=== PATIENT | female | born 1955 | race Hispanic/Latino ===

== ENCOUNTER 2021-08-17 13:19 | Inpatient (IN) | payer OTHER ==
[~2021-08-17] VITALS: Ht 157.5 cm; Wt 72.6 kg
[2021-08-17 14:01] LABS: INR 0.93; PROTHROMBIN TIME 13.3 seconds (11.9-14.5)
[2021-08-17 14:02] LABS: PARTIAL THROMBOPLASTIN TIME 33.1 seconds (23.8-35.5)
[2021-08-17 14:11] LABS: ALANINE AMINOTRANSFERASE 17 IU/L (0-55); ALBUMIN 3.3 g/dL (3.5-5.0); ALBUMIN/GLOBULIN RATIO 0.7 (0.8-2.0); ALKALINE PHOSPHATASE 100 IU/L (40-150); ANION GAP 14.5 mmol/L (8-16); BLOOD UREA NITROGEN 5 mg/dL (7-26); BUN/CREATININE RATIO 7 (6-25); CALCIUM 9.3 mg/dL (8.4-10.2); CARBON DIOXIDE 25 mmol/L (22-29); CHLORIDE 101 mmol/L (98-107); CREATINE KINASE 29 IU/L (29-168); CREATININE, SERUM 0.76 mg/dL (0.57-1.11); EST GLOMERULAR FILTRATION RATE 77 ML/MIN (60-); GLUCOSE 278 mg/dL (74-118); POTASSIUM 3.5 mmol/L (3.5-5.1); SODIUM 137 mmol/L (136-145)
[2021-08-17 14:16] LABS: BASOPHILS % 0.6 % (0.0-1.0); EOSINOPHILS # (AUTO) 0.1 (0.0-0.4); EOSINOPHILS % 0.8 % (0.0-6.0); HEMATOCRIT 40.1 % (34.2-44.1); HEMOGLOBIN 13.6 g/dL (12.0-16.0); LYMPHOCYTES # (AUTO) 1.5 (1.0-3.2); LYMPHOCYTES % 20.7 % (18.0-39.1); MEAN CORPUSCULAR HEMOGLOBIN 29.2 pg (28-32); MEAN CORPUSCULAR HGB CONC 33.9 g/dL (31-35); MEAN CORPUSCULAR VOLUME 86.2 fL (81-99); MONOCYTES # (AUTO) 0.3 (0.2-0.8); MONOCYTES % 4.5 % (4.4-11.3); NEUTROPHILS # (AUTO) 5.3 (2.1-6.9); PLATELET COUNT 333 x10e3/uL (140-360); RED BLOOD COUNT 4.65 x10e6/uL (3.6-5.1); RED CELL DISTRIBUTION WIDTH 12.3 % (11.7-14.4)
[2021-08-17 14:21] LABS: AMPHETAMINES SCREEN,URINE NEGATIVE (NEGATIVE); CLARITY,URINE HAZY (CLEAR); COLOR,URINE YELLOW (YELLOW); KETONES,URINE NEGATIVE (NEGATIVE); LEUKOCYTE ESTERASE ,URINE NEGATIVE (NEGATIVE); NITRITE,URINE NEGATIVE (NEGATIVE); PHENCYCLIDINE SCREEN,URINE NEGATIVE (NEGATIVE); PROTEIN,URINE DIPSTICK 2+ (NEGATIVE)
[2021-08-17 14:22] LABS: BENZODIAZEPINES SCREEN,URINE NEGATIVE (NEGATIVE); URINE UROBILINOGEN 0.2 mg/dL (0.2 - 1)
[2021-08-17] MEDS ORDERED: ACETAMINOPHEN 325 MG TAB ONE (14:25)
[2021-08-17] MEDS ORDERED: ACETAMINOPHEN 325 MG TAB PO ONE (14:30)
[2021-08-17] MEDS ORDERED: SODIUM CHLORIDE 0.9% 1000ML 1,000 ML IV SCH (14:30)
[2021-08-17 14:31] LABS: BACTERIA,URINE MANY /HPF
[2021-08-17] MEDS ORDERED: Vancomycin IV 1 GM in SODIUM CHLORIDE 0.9% 250ML 250 ML IV STA (14:55)
[2021-08-17] MEDS ORDERED: DEXAMETHASONE SOD PHOS 10 MG/1 ML VIAL IV ONE (15:00)
[2021-08-17] MEDS ORDERED: CEFTRIAXONE 1 GM in SODIUM CHLORIDE 0.9% 50ML 50 ML IV SCH (15:00)
[2021-08-17] MEDS: CEFTRIAXONE 1 GM in SODIUM CHLORIDE 0.9% 50ML 50 ML IV STA ×2 (15:06→16:26)
[2021-08-17 16:06] LABS: APPEARANCE,CSF CLEAR (CLEAR); COLOR,CSF COLORLESS (COLORLESS); TUBE NUMBER 3
[2021-08-17 16:07] LABS: WHITE BLOOD CELL,CSF 4 cells/uL (0-5)
[2021-08-17] MEDS ORDERED: ONDANSETRON HCL INJ 2MG/ML 2ML 2 MG/ML VIAL IV PRN (16:15)
[2021-08-17] MEDS ORDERED: ACETAMINOPHEN 325 MG TAB PO PRN (16:15)
[2021-08-17] MEDS ORDERED: Ampicillin INJ 2 GM in SODIUM CHLORIDE 0.9% 100 ML IV ONE ×2 (16:30→20:00)
[2021-08-17] MEDS: SODIUM CHLORIDE 0.9% 1000ML 1,000 ML IV SCH (16:43)
[2021-08-17] MEDS ORDERED: DEXTROSE 50% SYRINGE 50 ML IV PRN (16:45)
[2021-08-17] MEDS ORDERED: ACYCLOVIR SODIUM 800 MG in SODIUM CHLORIDE 0.9% 250ML 250 ML IV SCH (17:00)
[2021-08-17] MEDS: INSULIN REGULAR, HUMAN 100 UNIT/1 ML SQ SCH ×2 (17:00→21:00)
[2021-08-17 18:30] VITALS: BP 156/84
[2021-08-17] MEDS ORDERED: CLONIDINE HCL 0.1 MG TAB PO PRN (19:30)
[2021-08-17] MEDS ORDERED: SODIUM CHLORIDE 0.9% 50ML 50 ML ONE (19:56)
[2021-08-17] MEDS ORDERED: IOPAMIDOL 370 MG/ML 200 ML INFUS..BTL INJ ONE (19:56)
[2021-08-17 20:00] VITALS: BP 149/89
[2021-08-18] VITALS (8 sets, daily range): BP systolic 121–138; BP diastolic 62–83
[2021-08-18 05:43] LABS: BASOPHILS % 0.1 % (0.0-1.0); HEMATOCRIT 36.2 % (34.2-44.1); HEMOGLOBIN 12.4 g/dL (12.0-16.0); LYMPHOCYTES # (AUTO) 1.2 (1.0-3.2); LYMPHOCYTES % 15.9 % (18.0-39.1); MEAN CORPUSCULAR HEMOGLOBIN 29.3 pg (28-32); MEAN CORPUSCULAR HGB CONC 34.3 g/dL (31-35); MEAN CORPUSCULAR VOLUME 85.6 fL (81-99); MONOCYTES # (AUTO) 0.2 (0.2-0.8); MONOCYTES % 2.2 % (4.4-11.3); NEUTROPHILS # (AUTO) 6.2 (2.1-6.9); NEUTROPHILS % 81.4 % (38.7-80.0); PLATELET COUNT 327 x10e3/uL (140-360); RED BLOOD COUNT 4.23 x10e6/uL (3.6-5.1)
[2021-08-18] MEDS: PIPERACILLIN/TAZOBACTAM 3.375 GM in SODIUM CHLORIDE 0.9% 50ML 50 ML IV SCH ×6 (05:45→23:19)
[2021-08-18] MEDS: SODIUM CHLORIDE 0.9% 1000ML 1,000 ML IV SCH ×4 (05:49→23:08)
[2021-08-18 06:05] LABS: ALBUMIN 2.7 g/dL (3.5-5.0); ALBUMIN/GLOBULIN RATIO 0.7 (0.8-2.0); ANION GAP 12.4 mmol/L (8-16); CALCIUM 8.3 mg/dL (8.4-10.2); CREATININE, SERUM 0.65 mg/dL (0.57-1.11); POTASSIUM 3.4 mmol/L (3.5-5.1)
[2021-08-18] MEDS ORDERED: ATORVASTATIN CA10 MG PO (06:35)
[2021-08-18] MEDS: INSULIN REGULAR, HUMAN 100 UNIT/1 ML SQ SCH ×4 (07:30→21:15)
[2021-08-18] MEDS ORDERED: POTASSIUM CHLORIDE 10MEQ EA PO ONE ×2 (14:00→14:45)
[2021-08-18] MEDS ORDERED: POTASSIUM CHLORIDE 20 MEQ TAB CR PO ONE (14:35)
[2021-08-18] MEDS: ENOXAPARIN SOD INJ 40 MG/0.4 ML SYR SC SCH (17:00)
[2021-08-18] MEDS: ATORVASTATIN 10 MG TAB PO SCH ×3 (21:00→21:09)
[2021-08-18] MEDS: INSULIN GLARGINE 100 UNITS/ML VIAL SQ SCH (21:15)
[2021-08-19] VITALS (7 sets, daily range): BP systolic 129–159; BP diastolic 64–77
[2021-08-19] MEDS: PIPERACILLIN/TAZOBACTAM 3.375 GM in SODIUM CHLORIDE 0.9% 50ML 50 ML IV SCH ×4 (05:24→23:54)
[2021-08-19] MEDS: INSULIN REGULAR, HUMAN 100 UNIT/1 ML SQ SCH ×4 (07:30→21:00)
[2021-08-19] MEDS: SODIUM CHLORIDE 0.9% 1000ML 1,000 ML IV SCH ×3 (08:15→16:15)
[2021-08-19] MEDS ORDERED: LEVOFLOXACIN250 MG PO (13:16)
[2021-08-19] MEDS: ENOXAPARIN SOD INJ 40 MG/0.4 ML SYR SC SCH (17:00)
[2021-08-19] MEDS: ATORVASTATIN 10 MG TAB PO SCH (21:00)
[2021-08-19] MEDS: INSULIN GLARGINE 100 UNITS/ML VIAL SQ SCH (21:08)
[2021-08-20] VITALS: BP 139/76
[2021-08-20 04:00] VITALS: BP 147/80
[2021-08-20] MEDS: PIPERACILLIN/TAZOBACTAM 3.375 GM in SODIUM CHLORIDE 0.9% 50ML 50 ML IV SCH (05:06)
[2021-08-20] MEDS: INSULIN REGULAR, HUMAN 100 UNIT/1 ML SQ SCH ×2 (07:29→11:21)
[2021-08-20 08:14] VITALS: BP 147/80
[2021-08-20 08:21] VITALS: BP 150/70
[2021-08-20 11:33] VITALS: BP 152/75
== END 2021-08-20 12:24 | disposition home or self-care (01) | DRG 689 ==
LOC: ER 13:51 → ERHOLD 16:15 → MED/SURG 17:18
PROVIDERS: ADMIT Internal Medicine; ATTEND Internal Medicine
PROC: 009U3ZX Drainage of Spinal Canal, Percutaneous Approach, Diagnostic (ICD-10-PCS; principal; 2021-08-17)
DX: N39.0 Urinary tract infection, site not specified (principal); G93.41 Metabolic encephalopathy; B96.1 Klebsiella pneumoniae [K. pneumoniae] as the cause of diseases classified elsewhere; E11.9 Type 2 diabetes mellitus without complications; I10 Essential (primary) hypertension; G97.1 Other reaction to spinal and lumbar puncture; G44.89 Other headache syndrome; R33.8 Other retention of urine; Z20.822 Contact with and (suspected) exposure to COVID-19
CPT/HCPCS: 36415; 62270; 70450; 70544; 70547; 70551; 71045; 74177; 80053; 80307; 81001; 82550; 82553; 82945; 82948; 83605; 83735; 84157; 84484; 85025; 85610; 85730; 87040; 87070; 87086; 87186; 87205; 87529; 89051; 93005; 93880; 94799; 99285; J0696; J1100; J1650; J1815; J1817; J2543; J3370; J7030; J7050; Q9967; U0002

== ENCOUNTER 2024-08-26 23:17 | Emergency (ER) | payer MEDICARE, OTHER ==
[~2024-08-26] VITALS: Ht 160 cm; Wt 65.8 kg
[~2024-08-26 23:17] MED LIST: ATORVASTATIN CA10 MG PO; LEVOFLOXACIN250 MG PO
[2024-08-26 23:44] VITALS: TEMP 98.8
[2024-08-27 00:58] LABS: BASOPHILS # (AUTO) 0.1 (0.0-0.1); BASOPHILS % 0.6 % (0.0-1.0); EOSINOPHILS # (AUTO) 0.1 (0.0-0.4); EOSINOPHILS % 1.5 % (0.0-6.0); HEMATOCRIT 41.7 % (34.2-44.1); HEMOGLOBIN 13.9 g/dL (12.0-16.0); LYMPHOCYTES # (AUTO) 2.3 (1.0-3.2); LYMPHOCYTES % 25.1 % (18.0-39.1); MEAN CORPUSCULAR HEMOGLOBIN 29.4 pg (28-32); MEAN CORPUSCULAR HGB CONC 33.3 g/dL (31-35); MEAN CORPUSCULAR VOLUME 88.3 fL (81-99); MONOCYTES # (AUTO) 0.5 (0.2-0.8); MONOCYTES % 5.4 % (4.4-11.3); NEUTROPHILS # (AUTO) 6.1 (2.1-6.9); NEUTROPHILS % 67.1 % (38.7-80.0); PLATELET COUNT 387 x10e3/uL (140-360); RED BLOOD COUNT 4.72 x10e6/uL (3.6-5.1); RED CELL DISTRIBUTION WIDTH 12.3 % (11.7-14.4); WHITE BLOOD COUNT 9.07 x10e3/uL (4.8-10.8)
[2024-08-27 01:05] LABS: BILIRUBIN,URINE NEGATIVE (NEGATIVE); CLARITY,URINE CLOUDY (CLEAR); COLOR,URINE YELLOW (YELLOW); GLUCOSE, URINE 500 (NEGATIVE); KETONES,URINE NEGATIVE (NEGATIVE); LEUKOCYTE ESTERASE ,URINE TRACE (NEGATIVE); NITRITE,URINE NEGATIVE (NEGATIVE); PH,URINE 7 (5 - 7); PROTEIN,URINE DIPSTICK 2+ (NEGATIVE); URINE UROBILINOGEN 0.2 mg/dL (0.2 - 1)
[2024-08-27] MEDS: ONDANSETRON HCL INJ 2MG/ML 2ML 2 MG/ML VIAL IV STA ×2 (01:06→02:32)
[2024-08-27] MEDS: MECLIZINE HCL 12.5 MG TAB PO ONE (01:06)
[2024-08-27 01:13] LABS: ALBUMIN 3.9 g/dL (3.5-5.0); ANION GAP 15.8 mmol/L (8-16); BILIRUBIN,TOTAL 0.5 mg/dL (0.2-1.2); CREATININE, SERUM 0.71 mg/dL (0.57-1.11); POTASSIUM 3.8 mmol/L (3.5-5.1); TOTAL PROTEIN 7.9 g/dL (6.5-8.1)
[2024-08-27 02:27] LABS: BACTERIA,URINE MANY /HPF; EPITHELIAL CELLS,URINE MODERATE /LPF
[2024-08-27] MEDS ORDERED: IOPAMIDOL 370 MG/ML 100 ML INFUS..BTL INJ ONE (03:02)
[2024-08-27 04:59] VITALS: BP 151/93; PULSE 82
[2024-08-27] MEDS: METOPROLOL TARTRATE INJ 1 MG/ML VIAL IV ONE (04:59)
[2024-08-27 05:30] VITALS: PULSE 88; RESP 16; O2SAT 98
== END 2024-08-27 06:13 | disposition other institution (70) ==
LOC: ER 08-27 00:33
DX: R42 Dizziness and giddiness (principal); N39.0 Urinary tract infection, site not specified; R51.9 Headache, unspecified; R94.02 Abnormal brain scan; I10 Essential (primary) hypertension; E11.65 Type 2 diabetes mellitus with hyperglycemia; E78.5 Hyperlipidemia, unspecified
CPT/HCPCS: 36415; 70450; 70496; 70498; 80053; 81001; 84484; 85025; 87086; 87186; 93005; 99284; J0696; J2405; J8597; Q9967

== ENCOUNTER 2024-10-04 17:29 | Inpatient (IN) | payer MEDICARE ==
[~2024-10-04] VITALS: Ht 162.6 cm; Wt 64.4 kg
[2024-10-04 18:13] LABS: INR 0.93
[2024-10-04 18:17] LABS: BASOPHILS # (AUTO) 0.1 (0.0-0.1); BASOPHILS % 0.4 % (0.0-1.0); HEMOGLOBIN 15.3 g/dL (12.0-16.0); LYMPHOCYTES # (AUTO) 1.5 (1.0-3.2); LYMPHOCYTES % 12.3 % (18.0-39.1); MEAN CORPUSCULAR HEMOGLOBIN 29.9 pg (28-32); MEAN CORPUSCULAR VOLUME 88.1 fL (81-99); MONOCYTES # (AUTO) 0.4 (0.2-0.8); MONOCYTES % 3.5 % (4.4-11.3); NEUTROPHILS # (AUTO) 10.1 (2.1-6.9); PLATELET COUNT 492 x10e3/uL (140-360); RED BLOOD COUNT 5.11 x10e6/uL (3.6-5.1); RED CELL DISTRIBUTION WIDTH 12.8 % (11.7-14.4); WHITE BLOOD COUNT 12.22 x10e3/uL (4.8-10.8)
[2024-10-04] MEDS: SODIUM CHLORIDE 0.9% 1000ML 1,000 ML IV STA (18:18)
[2024-10-04 18:22] LABS: ANION GAP 16.5 mmol/L (8-16); BILIRUBIN,TOTAL 0.7 mg/dL (0.2-1.2); CALCIUM 9.8 mg/dL (8.4-10.2); CREATININE, SERUM 0.78 mg/dL (0.57-1.11); POTASSIUM 3.5 mmol/L (3.5-5.1); TOTAL PROTEIN 7.9 g/dL (6.5-8.1)
[2024-10-04 18:28] LABS: TROPONIN I 0.012 ng/mL (0-0.300)
[2024-10-04 18:42] LABS: B-TYPE NATRIURETIC PEPTIDE2 72.2 pg/mL (0-100)
[2024-10-04 18:43] LABS: CORONAVIRUS COVID-19 AG NEGATIVE (NEGATIVE); INFLUENZA A AG NEGATIVE (NEGATIVE); INFLUENZA B AG NEGATIVE (NEGATIVE)
[2024-10-04 21:03] VITALS: TEMP 99.3
[2024-10-04] MEDS: SODIUM CHLORIDE 0.9% 1000ML 1,000 ML IV SCH (21:30)
[2024-10-04] MEDS ORDERED: Morphine 2mg Syringe 2 MG/ML SYR IV PRN (21:30)
[2024-10-04 21:42] VITALS: PULSE 90; RESP 16
[2024-10-04 22:30] VITALS: BP 220/113; PULSE 102; RESP 18; TEMP 98.4; O2SAT 98
[2024-10-04 22:49] VITALS: BP 220/113; PULSE 100; RESP 18; TEMP 98.4; O2SAT 98
[2024-10-04 22:50] VITALS: BP 220/113; PULSE 100; RESP 18; TEMP 98.4; O2SAT 98
[2024-10-04 23:32] VITALS: BP 220/113; PULSE 100; RESP 18; TEMP 98.4; O2SAT 98
[2024-10-05 04:00] VITALS: BP 160/88; PULSE 89; RESP 20; TEMP 98.6; O2SAT 98
[2024-10-05 06:48] LABS: BASOPHILS # (AUTO) 0.1 (0.0-0.1); BASOPHILS % 0.3 % (0.0-1.0); EOSINOPHILS % 0.1 % (0.0-6.0); HEMATOCRIT 42.6 % (34.2-44.1); HEMOGLOBIN 14.3 g/dL (12.0-16.0); LYMPHOCYTES % 13.7 % (18.0-39.1); MEAN CORPUSCULAR HEMOGLOBIN 29.7 pg (28-32); MEAN CORPUSCULAR HGB CONC 33.6 g/dL (31-35); MEAN CORPUSCULAR VOLUME 88.6 fL (81-99); MONOCYTES # (AUTO) 0.6 (0.2-0.8); MONOCYTES % 4.2 % (4.4-11.3); NEUTROPHILS # (AUTO) 11.7 (2.1-6.9); NEUTROPHILS % 81.1 % (38.7-80.0); PLATELET COUNT 459 x10e3/uL (140-360); RED BLOOD COUNT 4.81 x10e6/uL (3.6-5.1); RED CELL DISTRIBUTION WIDTH 12.8 % (11.7-14.4)
[2024-10-05 07:24] LABS: ALBUMIN 3.5 g/dL (3.5-5.0); ALBUMIN/GLOBULIN RATIO 1.1 (0.8-2.0); ANION GAP 14.5 mmol/L (8-16); BILIRUBIN,TOTAL 0.8 mg/dL (0.2-1.2); CALCIUM 8.8 mg/dL (8.4-10.2); CREATININE, SERUM 0.62 mg/dL (0.57-1.11); POTASSIUM 3.5 mmol/L (3.5-5.1); TOTAL PROTEIN 6.8 g/dL (6.5-8.1)
[2024-10-05 07:45] LABS: TROPONIN I 0.003 ng/mL (0-0.300)
[2024-10-05 08:32] VITALS: BP 160/88; PULSE 89; RESP 20; TEMP 98.6; O2SAT 98
[2024-10-05 08:53] VITALS: BP 126/62; PULSE 87; RESP 19; TEMP 99.1; O2SAT 98
[2024-10-05] MEDS: ONDANSETRON HCL INJ 2MG/ML 2ML 2 MG/ML VIAL IV PRN (11:20)
[2024-10-05] MEDS: HYDRALAZINE HCL 20 MG/ML VIAL IV PRN (11:48)
[2024-10-05 11:52] VITALS: BP 179/83; PULSE 82; RESP 20; TEMP 98.1; O2SAT 97
[2024-10-05] MEDS ORDERED: DEXTROSE 50% SYRINGE 50 ML IV PRN (12:15)
[2024-10-05 16:05] VITALS: BP 160/77; PULSE 94; RESP 19; TEMP 98.8; O2SAT 97
[2024-10-05 16:37] LABS: TROPONIN I 0.002 ng/mL (0-0.300)
[2024-10-05] MEDS: INSULIN LISPRO 100 UNIT/1 ML 3ML VIAL SQ SCH (18:17)
[2024-10-05 20:00] VITALS: BP 114/66; PULSE 93; RESP 20; TEMP 98.7; O2SAT 100
[2024-10-06] VITALS: BP 140/83; PULSE 94; RESP 20; TEMP 98.6; O2SAT 96
[2024-10-06 04:00] VITALS: BP 167/81; PULSE 91; RESP 20; TEMP 99.1; O2SAT 97
[2024-10-06 06:26] LABS: BASOPHILS # (AUTO) 0.1 (0.0-0.1); BASOPHILS % 0.7 % (0.0-1.0); EOSINOPHILS # (AUTO) 0.1 (0.0-0.4); EOSINOPHILS % 0.8 % (0.0-6.0); HEMATOCRIT 38.2 % (34.2-44.1); HEMOGLOBIN 12.3 g/dL (12.0-16.0); LYMPHOCYTES # (AUTO) 1.6 (1.0-3.2); MEAN CORPUSCULAR HEMOGLOBIN 29.9 pg (28-32); MEAN CORPUSCULAR HGB CONC 32.2 g/dL (31-35); MEAN CORPUSCULAR VOLUME 92.9 fL (81-99); MONOCYTES # (AUTO) 0.6 (0.2-0.8); MONOCYTES % 5.8 % (4.4-11.3); NEUTROPHILS # (AUTO) 7.6 (2.1-6.9); PLATELET COUNT 316 x10e3/uL (140-360); RED BLOOD COUNT 4.11 x10e6/uL (3.6-5.1); RED CELL DISTRIBUTION WIDTH 13.4 % (11.7-14.4); WHITE BLOOD COUNT 9.98 x10e3/uL (4.8-10.8)
[2024-10-06 06:54] LABS: ANION GAP 14.1 mmol/L (8-16); CALCIUM 8.3 mg/dL (8.4-10.2); CREATININE, SERUM 0.59 mg/dL (0.57-1.11)
[2024-10-06 06:56] LABS: POTASSIUM 3.1 mmol/L (3.5-5.1)
[2024-10-06] MEDS: AMLODIPINE BESYLATE 10 MG TAB PO SCH (08:56)
[2024-10-06] MEDS: PIOGLITAZONE HCL 45 MG TAB PO SCH (08:57)
[2024-10-06] MEDS: LOSARTAN POTASSIUM 25 MG TAB PO SCH (08:57)
[2024-10-06] MEDS: SITAGLIPTIN 100 MG TAB PO SCH (08:57)
[2024-10-06 09:16] VITALS: BP 146/72; PULSE 79; RESP 18; TEMP 98.6; O2SAT 100
[2024-10-06 09:20] VITALS: BP 146/72; PULSE 79; RESP 18; TEMP 98.6; O2SAT 100
[2024-10-06 12:00] VITALS: BP 134/61; PULSE 95; RESP 18; TEMP 98.3; O2SAT 98
[2024-10-06] MEDS: HYDROCHLOROTHIAZIDE 25 MG TAB PO SCH (13:26)
[2024-10-06] MEDS ORDERED: JANUVIA100 MG PO (13:51)
[2024-10-06] MEDS ORDERED: ACTOS45 MG PO (13:51)
[2024-10-06] MEDS ORDERED: ESIDRIX25 MG PO (13:51)
[2024-10-06] MEDS ORDERED: NORVASC10 MG PO (13:51)
[2024-10-06] MEDS ORDERED: COZAAR25 MG PO (13:51)
[2024-10-06] MEDS: POTASSIUM CHLORIDE 20 MEQ TAB CR PO ONE (17:37)
== END 2024-10-06 17:54 | disposition home or self-care (01) | DRG 637 ==
LOC: ER 17:55 → ERHOLD 21:34 → MED/SURG3 22:08
PROVIDERS: ADMIT Internal Medicine; ATTEND Internal Medicine
DX: E11.65 Type 2 diabetes mellitus with hyperglycemia (principal); G93.41 Metabolic encephalopathy; I16.9 Hypertensive crisis, unspecified; I67.4 Hypertensive encephalopathy; I10 Essential (primary) hypertension; Z79.4 Long term (current) use of insulin; Z79.84 Long term (current) use of oral hypoglycemic drugs; R53.1 Weakness; N31.9 Neuromuscular dysfunction of bladder, unspecified; E78.5 Hyperlipidemia, unspecified; H54.61 Unqualified visual loss, right eye, normal vision left eye; Z11.52 Encounter for screening for COVID-19; Z86.73 Personal history of transient ischemic attack (TIA), and cerebral infarction without residual deficits; Z71.81 Spiritual or religious counseling; Z79.899 Other long term (current) drug therapy
CPT/HCPCS: 36415; 70450; 70551; 71045; 80048; 80053; 82550; 82948; 83036; 83690; 83880; 84484; 85025; 85610; 93005; 99284; J0360; J2405; J7030

== ENCOUNTER 2024-12-30 18:34 | Inpatient (IN) | payer MEDICARE ==
[~2024-12-30] VITALS: Ht 160 cm; Wt 64.4 kg
[~2024-12-30 18:34] MED LIST changes: +ACTOS45 MG PO; +COZAAR25 MG PO; +ESIDRIX25 MG PO; +JANUVIA100 MG PO; +NORVASC10 MG PO
[2024-12-30 19:20] VITALS: TEMP 98.3
[2024-12-30] MEDS ORDERED: IOPAMIDOL 370 MG/ML 100 ML INFUS..BTL INJ ONE (19:32)
[2024-12-30] MEDS ORDERED: SODIUM CHLORIDE 0.9% 100 ML ONE (19:32)
[2024-12-30 19:36] LABS: BASOPHILS % 0.4 % (0.0-1.0); EOSINOPHILS % 0.5 % (0.0-6.0); LYMPHOCYTES % 12.0 % (18.0-39.1); MONOCYTES % 2.6 % (4.4-11.3); NEUTROPHILS % 83.2 % (38.7-80.0); RED CELL DISTRIBUTION WIDTH 13.9 % (11.7-14.4)
[2024-12-30 19:51] LABS: INR 1.08
[2024-12-30 20:01] LABS: EST GLOMERULAR FILTRATION RATE 90 ML/MIN (>=60)
[2024-12-30] MEDS: ASPIRIN 81 MG CHEW TAB PO ONE (20:16)
[2024-12-30] MEDS: ASPIRIN 325 MG TAB PO STA (20:28)
[2024-12-30] MEDS: HYDRALAZINE HCL 20 MG/ML VIAL IV STA (20:28)
[2024-12-30] MEDS ORDERED: Morphine 4mg INJECTION 4 MG/ML INJ IV PRN (20:45)
[2024-12-30] MEDS ORDERED: ONDANSETRON HCL INJ 2MG/ML 2ML 2 MG/ML VIAL IV PRN (20:45)
[2024-12-30] MEDS ORDERED: HYDRALAZINE HCL 20 MG/ML VIAL IV PRN (21:00)
[2024-12-30 22:08] VITALS: PULSE 80; RESP 17
[2024-12-30] MEDS: SODIUM CHLORIDE 0.9% 1000ML 1,000 ML IV SCH (23:04)
[2024-12-30 23:30] VITALS: BP 168/89; PULSE 80; RESP 18; TEMP 98; O2SAT 99
[2024-12-30 23:33] VITALS: BP 168/89; PULSE 80; RESP 18; TEMP 98; O2SAT 99
[2024-12-30 23:34] VITALS: BP 168/89; PULSE 80; RESP 18; TEMP 98; O2SAT 99
[2024-12-30 23:35] VITALS: BP 168/89; PULSE 80; RESP 18; TEMP 98; O2SAT 99
[2024-12-31 04:00] VITALS: BP 140/73; PULSE 79; RESP 18; TEMP 97.8; O2SAT 100
[2024-12-31 06:29] LABS: BASOPHILS % 0.7 % (0.0-1.0); EOSINOPHILS % 0.6 % (0.0-6.0); LYMPHOCYTES % 25.2 % (18.0-39.1); MONOCYTES % 5.3 % (4.4-11.3); NEUTROPHILS % 67.6 % (38.7-80.0); RED CELL DISTRIBUTION WIDTH 14.2 % (11.7-14.4)
[2024-12-31 07:06] LABS: EST GLOMERULAR FILTRATION RATE 97.0 ML/MIN (>=60)
[2024-12-31 09:00] VITALS: BP 159/84; PULSE 71; RESP 18; TEMP 98.1; O2SAT 100
[2024-12-31 14:03] VITALS: BP 136/89; PULSE 80; RESP 18; TEMP 98.1; O2SAT 100
[2024-12-31 16:58] VITALS: BP 145/73; PULSE 76; RESP 18; TEMP 98.3; O2SAT 100
[2024-12-31] MEDS ORDERED: DEXTROSE 50% SYRINGE 50 ML IV PRN (17:15)
[2024-12-31] MEDS ORDERED: POLYETHYLENE GLYCOL 3350 17 GM PACK PO PRN (17:15)
[2024-12-31] MEDS ORDERED: ACETAMINOPHEN 325 MG TAB PO PRN (17:15)
[2024-12-31 20:00] VITALS: BP 156/72; PULSE 82; RESP 18; TEMP 98.2; O2SAT 99
[2024-12-31] MEDS: POTASSIUM CHLORIDE 10MEQ EA PO ONE (20:56)
[2024-12-31] MEDS: INSULIN REGULAR, HUMAN 100 UNIT/1 ML SQ SCH (20:57)
[2024-12-31] MEDS ORDERED: METFORMIN HCL500 MG PO (23:41)
[2024-12-31] MEDS ORDERED: LOSARTAN POTASS25 MG PO (23:41)
[2024-12-31] MEDS ORDERED: GLIPIZIDE5 MG PO (23:41)
[2025-01-01] VITALS: BP 138/71; PULSE 82; RESP 18; TEMP 98.2; O2SAT 98
[2025-01-01 04:00] VITALS: BP 146/85; PULSE 71; RESP 18; TEMP 98.2; O2SAT 99
[2025-01-01 05:54] LABS: BASOPHILS % 0.7 % (0.0-1.0); EOSINOPHILS % 2.3 % (0.0-6.0); LYMPHOCYTES % 35.6 % (18.0-39.1); MONOCYTES % 6.2 % (4.4-11.3); NEUTROPHILS % 54.6 % (38.7-80.0); RED CELL DISTRIBUTION WIDTH 14.2 % (11.7-14.4)
[2025-01-01 06:13] LABS: EST GLOMERULAR FILTRATION RATE 95.0 ML/MIN (>=60); PHOSPHORUS 3.7 MG/DL (2.3-4.7)
[2025-01-01 08:41] VITALS: BP 127/78; PULSE 68; RESP 18; TEMP 97.6; O2SAT 100
[2025-01-01] MEDS: PIOGLITAZONE HCL 45 MG TAB PO SCH (09:40)
[2025-01-01] MEDS: POTASSIUM CHLORIDE 10MEQ EA PO ONE (09:40)
[2025-01-01] MEDS: LOSARTAN POTASSIUM 25 MG TAB PO SCH (09:41)
[2025-01-01] MEDS: DOCUSATE SODIUM 100 MG CAP PO SCH (09:41)
[2025-01-01 12:16] VITALS: BP 126/70; PULSE 74; RESP 20; TEMP 98.1; O2SAT 100
[2025-01-01 13:42] LABS: CHOL/HDL RATIO 3.2 (3.0-3.6); LDL CHOLESTEROL 86.0 MG/DL (60-130)
[2025-01-01] MEDS: ASPIRIN 81 MG ENTERIC COATED PO STA (14:24)
[2025-01-01] MEDS: CLOPIDOGREL BISULFATE 75 MG TAB PO SCH (14:24)
[2025-01-01] MEDS ORDERED: ASPIRIN EC81 MG PO (14:40)
[2025-01-01] MEDS ORDERED: PLAVIX75 MG PO (14:40)
[2025-01-01 15:41] VITALS: BP 130/67; PULSE 82; RESP 18; TEMP 97.6; O2SAT 100
[2025-01-01] MEDS ORDERED: GLIPIZIDE 5 MG TAB PO SCH (17:00)
[2025-01-01] MEDS ORDERED: ATORVASTATIN 10 MG TAB PO SCH (21:00)
[2025-01-02] MEDS ORDERED: ASPIRIN 81 MG ENTERIC COATED PO SCH (09:00)
== END 2025-01-01 16:00 | disposition home or self-care (01) | DRG 69 ==
LOC: ER 18:45 → ERHOLD 20:50 → MED/SURG2 22:42
PROVIDERS: ADMIT Internal Medicine; ATTEND Internal Medicine
DX: G45.9 Transient cerebral ischemic attack, unspecified (principal); E11.65 Type 2 diabetes mellitus with hyperglycemia; R55 Syncope and collapse; I10 Essential (primary) hypertension; E87.6 Hypokalemia; E78.5 Hyperlipidemia, unspecified; R53.81 Other malaise; F41.9 Anxiety disorder, unspecified; N31.9 Neuromuscular dysfunction of bladder, unspecified; T46.5X6A Underdosing of other antihypertensive drugs, initial encounter; I69.398 Other sequelae of cerebral infarction; H54.61 Unqualified visual loss, right eye, normal vision left eye; T38.3X6A Underdosing of insulin and oral hypoglycemic [antidiabetic] drugs, initial encounter; Z91.128 Patient's intentional underdosing of medication regimen for other reason; Z79.82 Long term (current) use of aspirin; Z79.4 Long term (current) use of insulin; Z79.02 Long term (current) use of antithrombotics/antiplatelets; Z79.84 Long term (current) use of oral hypoglycemic drugs; I25.10 Atherosclerotic heart disease of native coronary artery without angina pectoris; Z90.710 Acquired absence of both cervix and uterus; Z87.891 Personal history of nicotine dependence
CPT/HCPCS: 36415; 70450; 70496; 70498; 70551; 71045; 80048; 80053; 80061; 82550; 82948; 83690; 83735; 83880; 84100; 84484; 85025; 85610; 93005; 93306; 99284; J0360; J7030; J7050; Q9967